=== PATIENT | female | born 1965 | race Caucasian/White ===

== ENCOUNTER 2017-10-05 15:25 | Emergency (ER) | payer BC ==
--- NOTE | 2017-10-05 15:57 | RAD ---
RADIOGRAPH CHEST 1 VIEW: 10/05/17 HISTORY: 52-year-old female with atrial fibrillation. FINDINGS: There are no air space densities, pulmonary edema, pneumothorax, or cardiomegaly. The lateral costop hrenic angles are sharp. IMPRESSION: No acute cardiopulmonary findings. jn [] POS: C
[2017-10-05 16:02] LABS: #Basophils 0.1 thou/uL (0.0-0.2); #Eosinphils 0.3 thou/uL (0.0-0.7); #Lymphocytes 1.3 thou/uL (1.20-3.40); #Monocytes 1.1 thou/uL (0.11-0.59); #Neutrophils 7.5 thou/uL (1.40-6.50); %Basophils 0.7 % (0.0-1.0); %Eosinophils 2.6 % (0.0-10.0); %Lymphocytes 12.8 % (21.0-51.0); %Monocytes 10.5 % (0.0-10.0); %Neutrophils 73.4 % (42.0-75.0); Hemoglobin 17.2 g/dL (12.0-16.0); Mean Corpuscular HGB CONC 33.7 g/dL (32.0-36.0); Mean Corpuscular Hemoglobin 33.9 pg (27.0-31.0); Mean Platelet Volume 7.2 fL (7.4-10.4); Platelet Count 267 thou/uL (130-400); RBC Distribution Width 11.6 % (11.5-14.5); Red Blood Cell (RBC) Count 5.06 mill/uL (4.20-5.40); White Blood Cell (WBC) Count 10.3 thou/uL (4.8-10.8)
[2017-10-05 16:09] LABS: INR-International Normal Ratio 2.3; PTT 49.1 SEC (22.9-36.1); Prothrombin Time 25.7 SEC (12.0-14.7)
[2017-10-05 16:24] LABS: ALT (SGPT) 53 U/L (8-55); AST (SGOT) 32 U/L (5-34); Albumin 4.1 g/dL (3.5-5.0); Alkaline Phosphatase 124 U/L (40-150); Anion Gap 16 mmol/L (10-20); BUN (Urea Nitrogen) 9 mg/dL (9.8-20.1); Bilirubin, Total 0.8 mg/dL (0.2-1.2); CK (CPK) 59 U/L (29-168); Calc. Creatinine Clearance 0 mL/min (70-130); Calcium 9.5 mg/dL (7.8-10.44); Carbon Dioxide 24 mmol/L (22-29); Chloride 103 mmol/L (98-107); Estimated GFR-MDRD 73; Globulin 2.9 g/dL (2.4-3.5); Glucose 126 mg/dL (70-105); Lipase 36 U/L (8-78); Potassium 4.5 mmol/L (3.5-5.1); Sodium 138 mmol/L (136-145)
[2017-10-05 16:27] LABS: Troponin I 0.011 ng/mL (< 0.028)
[2017-10-05] MEDS ORDERED: Albuterol Sulfate 2.5 mg/0.5 ml Neb ONE ×2 (17:14)
[2017-10-05] MEDS ORDERED: Potassium Chloride 20 MEQ TAB ONE (18:22)
[2017-10-05] MEDS ORDERED: Furosemide 20 MG/2 ML VIAL ONE (18:22)
== END 2017-10-05 19:17 | disposition home or self-care (01) ==
LOC: ERS 15:25
DX: I48.91 Unspecified atrial fibrillation (principal); J06.9 Acute upper respiratory infection, unspecified; I10 Essential (primary) hypertension; Z86.711 Personal history of pulmonary embolism
CPT/HCPCS: 36415; 71045; 80053; 82553; 83690; 83880; 84484; 85025; 85610; 85730; 93005; 94640; 96374; J1940; J7611

== ENCOUNTER 2017-12-27 15:16 | Outpatient (CLI) | payer BC | END 2017-12-27 15:17 | disposition home or self-care (01) | LOC: BICMAMMO 15:16 | PROVIDERS: ATTEND Family Medicine | DX: Z12.31 Encounter for screening mammogram for malignant neoplasm of breast (principal); N63.10 Unspecified lump in the right breast, unspecified quadrant | CPT/HCPCS: 77063; 77067 ==

== ENCOUNTER 2019-02-05 07:55 | Outpatient (CLI) | payer OTHER ==
--- NOTE | 2019-02-05 08:30 | ULT ---
ULTRASOUND ABDOMEN LIMITED: (RIGHT UPPER QUADRANT) DATE: 02/05/2019 HISTORY: 53-year-old female with right upper quadrant abdominal pain FINDINGS: Because of body habitus, visualization of abdominal organs is limited. Gallbladder:At least 1 moderately large calculus, at least 18 mm in size, causing shadowing, obscurin g most of the gallbladder. No pericholecystic fluid visualized in the near field. No wall thickening at the fundus. Common duct: 6 mm. Liver:Most of right lobe poorly visualized. Diffusely increased echogenicity suggestive of fatty live r. Pancreas:Head and tail obscured by shadowing from bowel gas. Right kidney:No hydronephrosis IMPRESSION: 1) Limited study because of body habitus. 2) positive for cholelithiasis. 3) possible hepatic steatosis
== END 2019-02-05 07:56 | disposition home or self-care (01) ==
LOC: BICULT 07:55
PROVIDERS: ATTEND Family Medicine
DX: R10.11 Right upper quadrant pain (principal); K80.20 Calculus of gallbladder without cholecystitis without obstruction; K76.0 Fatty (change of) liver, not elsewhere classified
CPT/HCPCS: 76705

== ENCOUNTER 2019-02-12 11:44 | Outpatient (CLI) | payer BC ==
[2019-02-12 13:46] LABS: #Basophils 0.1 thou/uL (0.0-0.2); #Eosinphils 0.1 thou/uL (0.0-0.7); #Lymphocytes 2.1 thou/uL (1.20-3.40); #Monocytes 0.5 thou/uL (0.11-0.59); %Basophils 0.9 % (0.0-1.0); %Lymphocytes 19.3 % (21.0-51.0); %Monocytes 4.9 % (0.0-10.0); Hemoglobin 15.4 g/dL (12.0-16.0); Mean Corpuscular HGB CONC 34.5 g/dL (32.0-36.0); Mean Corpuscular Hemoglobin 34.6 pg (27.0-31.0); Mean Platelet Volume 7.7 fL (7.4-10.4); Platelet Count 292 thou/uL (130-400); RBC Distribution Width 11.7 % (11.5-14.5); Red Blood Cell (RBC) Count 4.45 mill/uL (4.20-5.40); White Blood Cell (WBC) Count 10.8 thou/uL (4.8-10.8)
[2019-02-12 13:52] LABS: INR-International Normal Ratio 1.5; PTT 39.8 SEC (22.9-36.1); Prothrombin Time 18.3 SEC (12.0-14.7)
[2019-02-12 14:04] LABS: ALT (SGPT) 36 U/L (8-55); AST (SGOT) 28 U/L (5-34); Albumin 4.3 g/dL (3.5-5.0); Alkaline Phosphatase 128 U/L (40-150); Anion Gap 16 mmol/L (10-20); BUN (Urea Nitrogen) 14 mg/dL (9.8-20.1); Bilirubin, Total 0.7 mg/dL (0.2-1.2); Calc. Creatinine Clearance 0 mL/min (70-130); Calcium 9.8 mg/dL (7.8-10.44); Carbon Dioxide 27 mmol/L (22-29); Chloride 98 mmol/L (98-107); Estimated GFR-MDRD 75; Globulin 2.5 g/dL (2.4-3.5); Glucose 208 mg/dL (70-105); Potassium 3.7 mmol/L (3.5-5.1); Protein, Total 6.8 g/dL (6.0-8.3); Sodium 137 mmol/L (136-145)
--- NOTE | 2019-02-12 20:32 | EKG ---
Test Reason : Blood Pressure : / mmHG Vent. Rate : 068 BPM Atrial Rate : 068 BPM P-R Int : 174 ms QRS Dur : 088 ms QT Int : 404 ms P-R-T Axes : 031 043 060 degrees QTc Int : 429 ms Normal sinus rhythm Normal ECG When compared with ECG of 05-OCT-2017 16:02, Premature atrial complexes are no longer Present Questionable change in QRS axis Confirmed by IRAIS HOUSE, . SZeeshan ([id number]) on 02/12/2019 8:31:39 PM Referred By: DEMARCO Confirmed By:DR. Alirio BRAXTON MD
== END 2019-02-12 11:45 | disposition home or self-care (01) ==
LOC: LABBT 11:44
PROVIDERS: ATTEND Specialist
DX: Z01.818 Encounter for other preprocedural examination (principal); K80.12 Calculus of gallbladder with acute and chronic cholecystitis without obstruction
CPT/HCPCS: 80053; 85025; 85610; 85730; 93005; 93010

== ENCOUNTER 2019-02-14 05:32 | Day surgery (SDC) | payer BC ==
[2019-02-12 12:37] VITALS: BMI 53.3
--- NOTE | 2019-02-13 13:32 | HP ---
HISTORY OF PRESENT ILLNESS: Susan Kelly is a 53-year-old female followed by Dr. Elina Friedman. She has symptomatic cholelithiasis. She is on Coumadin since 2011 PE and DVT and did not take her Coumadin today, Sunday. She has right upper quadrant pain, epigastric pain, and back radiation intermittently. Ultrasound revealed gallstones, normal bile duct caliber. Laboratories have not been obtained and will be ordered. ALLERGIES: NONE. SOCIAL HISTORY: Tobacco, none. Alcohol, socially. MEDICATIONS: 1. Coreg 12.5 a day. 2. Coumadin 5 mg on Sunday, Sunday, and Sunday and 2.5 mg other days. 3. BuSpar 10 mg a day. 4. Ambien 10 mg a day. 5. Torsemide 20 mg a day. 6. Spironolactone 25 mg a day. PAST SURGICAL HISTORY: Total abdominal hysterectomy, question of status of ovaries, right ankle ORIF. Never has had a colonoscopy. She had a cardiac cath a year ago by Dr. Mora that was normal, p.r.n. followup. PAST MEDICAL HISTORY: DVT, PE, hypertension, and obesity. PHYSICAL EXAMINATION: VITAL SIGNS: Weight 340 pounds. Blood pressure 147/80, pulse 70, and temperature 97.7 degrees. HEAD, EARS, EYES, NOSE AND THROAT: Unremarkable. LUNGS: Clear to auscultation. CARDIAC: Regular rate and rhythm without murmur or gallop. ABDOMEN: Obese, soft, and nontender. EXTREMITIES: Unremarkable. No abdominal wall hernias. LYMPHATICS: Neck, axilla, and groins without lymphadenopathy. SKIN: Nonjaundiced. Sclera are nonicteric. NEUROLOGICAL: Intact. EXTREMITIES: Ankle is without edema. ASSESSMENT AND PLAN: 1. Chronic cholecystitis and cholelithiasis. We recommend laparoscopic video cholecystectomy. Risks of infection, bleeding, visceral and biliary injury explained. She consents. 2. Chronic anticoagulation from 2011 deep venous thrombosis and pulmonary embolism. Hold her anticoagulation for the next few days. Check PT/INR preoperatively. 3. Take her Coreg, torsemide in the morning of surgery with sip of water. Job ID: [id number]
[2019-02-14] MEDS ORDERED: Ketorolac Tromethamine 30 MG/ML VIAL ONE (05:57)
[2019-02-14] MEDS ORDERED: Levofloxacin 500 mg/D5W 100 ml Premix Bag ONE (05:57)
[2019-02-14] MEDS ORDERED: Fentanyl 100 MCG/2 ML VIAL ONE ×3 (06:23→08:38)
[2019-02-14] MEDS ORDERED: Bupivacaine HCl 0.5%/Epinephrine 1:200,000/PF 30 ml Vial ONE (06:32)
[2019-02-14] MEDS ORDERED: Midazolam HCl 2 mg/2 ml Vial ONE (06:58)
[2019-02-14] MEDS ORDERED: SUGAMMADEX SODIUM 200 MG/2 ML VIAL ONE (08:18)
[2019-02-14] MEDS ORDERED: Morphine 4 MG/ML VIAL ONE (08:31)
[2019-02-14] MEDS ORDERED: traMADol HCl 50 MG TAB ONE (10:02)
--- NOTE | 2019-02-14 14:18 | OP ---
DATE OF PROCEDURE: 02/14/2019 PREOPERATIVE DIAGNOSES: Chronic cholecystitis, cholelithiasis, morbid obesity, and large gallstone obstructing the gallbladder outlet. POSTOPERATIVE DIAGNOSES: Chronic cholecystitis, cholelithiasis, morbid obesity, and large gallstone obstructing the gallbladder outlet. PROCEDURES PERFORMED: Laparoscopic video cholecystectomy. Note, the patient is on Coumadin and will resume her Coumadin on Sunday and Coumadin for deep venous thrombosis occurrence. ANESTHESIA: General, local 0.5% Marcaine with epinephrine 30 mL. DESCRIPTION OF PROCEDURE: The patient was taken to the operating room, where under general anesthesia, abdomen was prepped with ChloraPrep and draped in routine fashion. Local anesthetic was infiltrated in the skin and subcutaneous tissue about each port site. Pneumoperitoneum to 15 mmHg was obtained with Veress needle, replacing with a 5 port and remainder ports placed under laparoscopic visualization. As the right subxiphoid incision was made and 11 port placed, right subcostal incision was made, midclavicular entrance line and the 5 port was placed. Liver was fatty. Fundus of the gallbladder was grasped at the cephalad. Infundibulum was grasped and reflected laterally. Cystic artery and duct dissected free, critical view obtained. Cystic artery and duct double clipped proximally divided, gallbladder dissected free from liver bed obtaining good hemostasis prior to division of final peritoneal attachments. Gallbladder and large gallstones removed, submitted to Pathology. Good hemostasis ensured with cautery. Irrigant and pneumoperitoneum were evacuated. All instruments were removed. All skin incisions approximated with a subdermal 4-0 Monocryl and Dermabond applied. The patient tolerated the procedure well. Job ID: [id number]
== END 2019-02-14 11:30 | disposition home or self-care (01) ==
LOC: SDC 05:32
PROVIDERS: ATTEND Specialist
PROC: 0FT44ZZ Resection of Gallbladder, Percutaneous Endoscopic Approach (ICD-10-PCS; principal; 2019-02-14)
DX: K80.12 Calculus of gallbladder with acute and chronic cholecystitis without obstruction (principal); I10 Essential (primary) hypertension; J45.909 Unspecified asthma, uncomplicated; E66.01 Morbid (severe) obesity due to excess calories; Z68.43 Body mass index [BMI] 50.0-59.9, adult; Z86.711 Personal history of pulmonary embolism; Z86.718 Personal history of other venous thrombosis and embolism; Z79.01 Long term (current) use of anticoagulants; Z79.899 Other long term (current) drug therapy
CPT/HCPCS: 88304; J0131; J0670; J1885; J1956; J2250; J2270; J3010

== ENCOUNTER 2019-03-24 10:55 | Day surgery (SDC) | payer BC ==
[2019-03-21 14:43] VITALS: BMI 34.9
[2019-03-24 14:29] LABS: Iron 52 ug/dL (50-170); Iron Binding Capacity, Total 333 mcg/dL (265-497)
[2019-03-24 14:47] LABS: Free T4 (Free Thyroxine) 0.97 ng/dL (0.70-1.48); Thyroid Stimulating Hormone 4.1933 uIU/mL (0.35-4.94)
[2019-03-24 14:56] LABS: HBSAB Concentration 21.91 mIU/mL; Hep B Surf AB Reactive (NonReactive); Hep B Surf Ag NonReactive S/CO (NonReactive)
[2019-03-24 14:58] LABS: Hep B Core Total Ab NonReactive (NonReactive); Hep B Core Total Index 0.05 S/CO (0-0.79); Hep C IgG Ab NonReactive (NonReactive); Hep C Index 0.11 S/CO (0-0.79)
--- NOTE | 2019-03-24 15:11 | OP ---
DATE OF PROCEDURE: 03/24/2019 PROCEDURE PERFORMED: Esophagogastroduodenoscopy with biopsy and colonoscopy. PREOPERATIVE DIAGNOSES: Chronic nausea and colon cancer screening. DESCRIPTION OF PROCEDURE: Informed consent was obtained from the patient. She was sedated with total intravenous anesthesia. The bite block was placed and the endoscope was advanced easily to the second portion of the duodenum and retroflexion was performed in the stomach. The esophagus was normal. The GE junction was normal. The stomach had [id number] erythematous gastritis in the antrum. Biopsies were obtained to rule out Helicobacter pylori. Retroflexed views in the stomach were normal. The pylorus and first and second portions of the duodenum were normal. Biopsies were taken from the second portion of the duodenum to rule out celiac disease. Biopsies were taken from the antrum and body of the stomach to rule out Helicobacter pylori. The patient was turned around. Rectal exam was performed, that was normal. The colonoscope was advanced to the terminal ileum without difficulty. The mucosa of the terminal ileum was normal. The colonic mucosa was normal throughout. Retroflexed views in the rectum were normal. IMPRESSION: 1. Nonerosive erythematous antral gastritis, biopsies obtained to rule out Helicobacter pylori. 2. Otherwise normal esophagogastroduodenoscopy. 3. Normal colonoscopy to the terminal ileum. RECOMMENDATIONS: 1. Await histopathology. 2. Repeat colonoscopy in 10 years for screening. 3. Restart warfarin today. 4. Follow up in GI clinic for further evaluation of her symptoms. Job ID: [id number]
[2019-03-24] MEDS ORDERED: PROPOFOL 200 MG/20 ML VIAL ONE (16:17)
== END 2019-03-24 13:30 | disposition home or self-care (01) ==
LOC: SDC 10:55
PROVIDERS: ATTEND Internal Medicine Gastroenterology
PROC: 0DJD8ZZ Inspection of Lower Intestinal Tract, Via Natural or Artificial Opening Endoscopic (ICD-10-PCS; principal; 2019-03-24)
PROC: 0DB88ZX Excision of Small Intestine, Via Natural or Artificial Opening Endoscopic, Diagnostic (ICD-10-PCS; principal; 2019-03-24)
PROC: 0DB68ZX Excision of Stomach, Via Natural or Artificial Opening Endoscopic, Diagnostic (ICD-10-PCS; principal; 2019-03-24)
DX: Z12.11 Encounter for screening for malignant neoplasm of colon (principal); K29.50 Unspecified chronic gastritis without bleeding; D64.9 Anemia, unspecified; F41.9 Anxiety disorder, unspecified; Z79.01 Long term (current) use of anticoagulants; Z79.899 Other long term (current) drug therapy
CPT/HCPCS: 36415; 83540; 83550; 84439; 84443; 86704; 86706; 86708; 86803; 87340; 88305; 88312

== ENCOUNTER 2019-04-04 14:01 | Outpatient (CLI) | payer BC ==
--- NOTE | 2019-04-04 15:45 | RAD ---
RADIOGRAPH BILATERAL HIPS 4 VIEWS: Date: 04/04/19 HISTORY: 54-year-old female with bilateral hip pain, left worse than right. FINDINGS: Bilateral femoral head contours are maintained. Bilateral hip joint spaces are maintained. No subcapi norris osteophytes. No fracture or dislocation. Mild vacuum joint phenomenon at the bilateral SI joints. IMPRESSION: 1. 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 2. Normal bilateral hip joints. POS: [facility]
== END 2019-04-04 14:02 | disposition home or self-care (01) ==
LOC: BICRAD 14:01
PROVIDERS: ATTEND Physician Assistant
DX: M25.552 Pain in left hip (principal); M53.3 Sacrococcygeal disorders, not elsewhere classified
CPT/HCPCS: 73522

== ENCOUNTER 2020-12-22 07:43 | Outpatient (CLI) | payer BC | END 2020-12-22 07:44 | disposition home or self-care (01) | LOC: BICULT 07:43 | PROVIDERS: ATTEND Physician Assistant Medical | DX: R10.11 Right upper quadrant pain (principal); Z90.49 Acquired absence of other specified parts of digestive tract | CPT/HCPCS: 76705 ==

== ENCOUNTER 2021-01-14 15:12 | Outpatient (CLI) | payer BC ==
[2021-01-15 01:52] LABS: SARS-CoV-2 PCR by NAA Not Detected (NotDetected)
== END 2021-01-14 15:13 | disposition home or self-care (01) ==
LOC: LABBT 15:12
PROVIDERS: ATTEND Internal Medicine Gastroenterology
DX: Z01.812 Encounter for preprocedural laboratory examination (principal); R10.11 Right upper quadrant pain; I48.91 Unspecified atrial fibrillation; E66.01 Morbid (severe) obesity due to excess calories; Z86.711 Personal history of pulmonary embolism; Z79.01 Long term (current) use of anticoagulants
CPT/HCPCS: 87635; U0003; U0005

== ENCOUNTER 2021-01-18 07:04 | Day surgery (SDC) | payer BC ==
[2021-01-17 14:36] VITALS: BMI 44.6
[2021-01-18] MEDS ORDERED: Midazolam HCl 2 mg/2 ml Vial ONE (07:54)
[2021-01-18] MEDS ORDERED: Lidocaine 1% PF 5 ML VIAL ONE (08:08)
[2021-01-18] MEDS ORDERED: Ondansetron PF 4 MG/2 ML Vial ONE (08:08)
[2021-01-18] MEDS ORDERED: PROPOFOL 200 MG/20 ML VIAL ONE (08:08)
[2021-01-18] MEDS ORDERED: Iopamidol 370 76% 50 ML VIAL FS ONE (08:53)
[2021-01-18] MEDS ORDERED: Iopamidol-370 76% 500 ML 1 ML ONE (08:53)
== END 2021-01-18 12:36 | disposition home or self-care (01) ==
LOC: SDC 07:04
PROVIDERS: ATTEND Internal Medicine Gastroenterology
PROC: 0DJ08ZZ Inspection of Upper Intestinal Tract, Via Natural or Artificial Opening Endoscopic (ICD-10-PCS; principal; 2021-01-18)
DX: R10.11 Right upper quadrant pain (principal); I48.91 Unspecified atrial fibrillation; E66.01 Morbid (severe) obesity due to excess calories; I10 Essential (primary) hypertension; Z68.41 Body mass index [BMI] 40.0-44.9, adult; Z79.01 Long term (current) use of anticoagulants; Z79.899 Other long term (current) drug therapy
CPT/HCPCS: 74177; J2250; J2405; J2704; Q9967

== ENCOUNTER 2021-09-13 14:43 | Outpatient (CLI) | payer BC | END 2021-09-13 14:44 | disposition home or self-care (01) | LOC: BICMAMMO 14:43 | PROVIDERS: ATTEND Physician Assistant | DX: Z12.31 Encounter for screening mammogram for malignant neoplasm of breast (principal) | CPT/HCPCS: 77063; 77067 ==

== ENCOUNTER 2025-08-04 15:36 | Outpatient (CLI) | payer BC | END 2025-08-04 15:37 | disposition home or self-care (01) | LOC: LABBT 15:36 | PROVIDERS: ATTEND Internal Medicine Cardiovascular Disease | DX: Z01.810 Encounter for preprocedural cardiovascular examination (principal); I48.19 Other persistent atrial fibrillation; R94.31 Abnormal electrocardiogram [ECG] [EKG] | CPT/HCPCS: 93005; 93010 ==

== ENCOUNTER 2025-08-11 08:19 | Day surgery (SDC) | payer BC ==
[2025-08-04 15:59] VITALS: BMI 37.0
[2025-08-04 17:19] LABS: #Basophils 0.04 10x3/uL (0.0-0.2); #Eosinophils 0.12 10x3/uL (0.0-0.7); #Monocytes 0.76 10x3/uL (0.11-0.59); #Neutrophils 6.54 10x3/uL (1.40-6.50); %Basophils 0.4 % (0.0-1.0); %Eosinophils 1.2 % (0.0-10.0); %Lymphocytes 24.2 % (21.0-51.0); %Monocytes 7.7 % (0.0-10.0); %Neutrophils 66.4 % (42.0-75.0); Hematocrit 44.3 % (36.0-47.0); Hemoglobin 15.2 g/dL (12.0-16.0); Mean Corpuscular Hemoglobin 33.5 pg (27.0-31.0); Mean Corpuscular Volume 97.6 fL (78.0-98.0); Platelet Count 204 10x3/uL (130-400); Red Blood Cell (RBC) Count 4.54 mill/uL (4.20-5.40); White Blood Cell (WBC) Count 9.85 10x3/uL (4.8-10.8)
[2025-08-04 17:34] LABS: INR-International Normal Ratio 1.2; PTT 33.4 sec (22.9-36.1); Prothrombin Time 15.4 sec (12.0-14.7)
[2025-08-04 17:37] LABS: ALT (SGPT) 26 U/L (Less than 34); AST (SGOT) 23 U/L (11-34); Albumin 4.3 g/dL (3.1-4.5); Alkaline Phosphatase 89 U/L (40-110); Anion Gap 18 mmol/L (10-20); BUN (Urea Nitrogen) 27 mg/dL (9.8-20.1); Bilirubin, Total 0.7 mg/dL (0.3-1.2); Calc. Creatinine Clearance 0 mL/min (70-130); Calcium 10.2 mg/dL (7.8-10.44); Carbon Dioxide 22 mmol/L (22-29); Chloride 104 mmol/L (98-107); Globulin 2.6 g/dL (2.4-3.5); Glucose 87 mg/dL (70-105); Potassium 3.7 mmol/L (3.5-5.1); Sodium 140 mmol/L (136-145)
[2025-08-06 05:14] LABS: Myoglobin, Serum 29.0 ng/mL (25-58)
[2025-08-10 12:37] LABS: Hemoglobin,Free - Plasma 2.8 mg/dL (0.0-4.9)
[2025-08-11] MEDS ORDERED: Heparin 10,000 UNITS/ 10 ML VIAL ONE (09:11)
[2025-08-11] MEDS ORDERED: Isoproterenol 0.2 MG/1 ML AMP ONE (09:12)
[2025-08-11] MEDS ORDERED: Lidocaine 1% PF 5 ML VIAL ONE ×2 (10:39)
[2025-08-11] MEDS ORDERED: SUCCINYLCHOLINE/SOD CL,ISO/PF 200 MG/10 ML SYRINGE FS ONE (11:34)
[2025-08-11] MEDS ORDERED: Rocuronium Bromide 10 MG/ML (10ML VIAL) ONE (11:40)
[2025-08-11] MEDS ORDERED: PROPOFOL 200 MG/20 ML VIAL ONE (11:40)
[2025-08-11] MEDS ORDERED: Ondansetron PF 4 MG/2 ML Vial ONE (11:50)
[2025-08-11] MEDS ORDERED: SUGAMMADEX SODIUM 200 MG/2 ML VIAL ONE (13:41)
[2025-08-11] MEDS ORDERED: fentaNYL PF 100 MCG/2 ML SYRINGE ONE ×2 (14:05→14:54)
[2025-08-11] MEDS ORDERED: HYDROmorphone 0.5 MG/0.5 ML SYRINGE ONE (15:02)
[2025-08-11] MEDS ORDERED: Acetaminophen 325 MG TAB ONE ×2 (17:10→17:11)
== END 2025-08-11 17:30 | disposition home or self-care (01) ==
LOC: SDC 08:19
PROVIDERS: ATTEND Internal Medicine Cardiovascular Disease
PROC: 4A023FZ Measurement of Cardiac Rhythm, Percutaneous Approach (ICD-10-PCS; principal; 2025-08-11)
PROC: 02583ZZ Destruction of Conduction Mechanism, Percutaneous Approach (ICD-10-PCS; principal; 2025-08-11)
DX: I48.19 Other persistent atrial fibrillation (principal); I11.0 Hypertensive heart disease with heart failure; I50.32 Chronic diastolic (congestive) heart failure; I82.409 Acute embolism and thrombosis of unspecified deep veins of unspecified lower extremity; I26.99 Other pulmonary embolism without acute cor pulmonale; F41.9 Anxiety disorder, unspecified; J44.9 Chronic obstructive pulmonary disease, unspecified; E66.812 Obesity, class 2; Z68.36 Body mass index [BMI] 36.0-36.9, adult; Z90.49 Acquired absence of other specified parts of digestive tract; Z90.710 Acquired absence of both cervix and uterus; Z79.51 Long term (current) use of inhaled steroids; Z79.01 Long term (current) use of anticoagulants; Z79.899 Other long term (current) drug therapy
CPT/HCPCS: 80053; 83010; 83051; 83874; 85025; 85347; 85610; 85730; 86850; 86900; 86901; 93005; 93010; 93623; 93656; 93657; C1730; C1732; C1733; C1759; C1760; C1766; C1769; C1893; C1894; J1171; J1644; J2250; J2405; J2704; J2720; J3010